=== PATIENT | male | born 1960 | race Hispanic/Latino ===

== ENCOUNTER 2022-12-09 15:25 | Outpatient (CLI) | payer MEDICARE, OTHER | END 2022-12-09 15:26 | disposition home or self-care (01) | LOC: CSHRAD 15:25 | PROVIDERS: ATTEND Neurological Surgery | DX: M47.26 Other spondylosis with radiculopathy, lumbar region (principal); M43.16 Spondylolisthesis, lumbar region | CPT/HCPCS: 72110 ==

== ENCOUNTER 2023-01-13 08:08 | Outpatient (CLI) | payer OTHER | END 2023-01-13 08:09 | disposition home or self-care (01) | LOC: CSHMRI 08:08 | PROVIDERS: ATTEND Neurological Surgery | DX: M47.812 Spondylosis without myelopathy or radiculopathy, cervical region (principal); M43.16 Spondylolisthesis, lumbar region; Z98.1 Arthrodesis status; M48.02 Spinal stenosis, cervical region; M47.816 Spondylosis without myelopathy or radiculopathy, lumbar region; M48.061 Spinal stenosis, lumbar region without neurogenic claudication | CPT/HCPCS: 72141; 72148 ==

== ENCOUNTER 2023-03-12 12:11 | Outpatient (CLI) | payer OTHER | END 2023-03-12 12:12 | disposition home or self-care (01) | LOC: CSHRAD 12:11 | PROVIDERS: ATTEND Neurological Surgery | DX: M43.16 Spondylolisthesis, lumbar region (principal); Z98.890 Other specified postprocedural states; M47.816 Spondylosis without myelopathy or radiculopathy, lumbar region | CPT/HCPCS: 72100 ==